=== PATIENT | male | born 1985 | race Caucasian/White ===

== ENCOUNTER 2024-11-23 09:19 | Emergency (ER) | payer SELFPAY ==
[~2024-11-23] VITALS: Ht 177.8 cm; Wt 77.0 kg
[2024-11-23 09:23] VITALS: TEMP 36.6; O2SAT 97
[2024-11-23] MEDS ORDERED: BO1 TP (10:28)
[2024-11-23] MEDS ORDERED: TOPUD PO (10:28)
[2024-11-23 10:55] VITALS: BP 144/90; PULSE 86; RESP 15; O2SAT 99
== END 2024-11-23 11:40 | disposition home or self-care (01) ==
LOC: EDBD 09:19 → ER 09:19
DX: S11.91XA Laceration without foreign body of unspecified part of neck, initial encounter (principal); R42 Dizziness and giddiness; Y04.0XXA Assault by unarmed brawl or fight, initial encounter; X58.XXXA Exposure to other specified factors, initial encounter; Y93.89 Activity, other specified; Y92.89 Other specified places as the place of occurrence of the external cause; Y99.8 Other external cause status
CPT/HCPCS: 74176; 99284